=== PATIENT | female | born 1995 | race Caucasian/White ===

== ENCOUNTER → 2016-11-11 18:00 | Observation (INO) ==
[2016-11-11 17:11] LABS: Bilirubin,Urine Negative (Negative); Blood,Urine Negative (Negative); Clarity,Urine Clear (Clear); Color,Urine Dark Yellow (Yellow); Glucose,Urine (UA) Normal (Normal); Ketones,Urine Negative (Negative); Leukocyte Esterase,Urine Small (Negative); Nitrite,Urine Negative (Negative); PH,Urine 6.5 pH Units (5.0-8.0); Protein,Urine 30 mg/dL (Neg-Trace); Specific Gravity,Urine 1.029 (1.010-1.025); Urobilinogen,Urine Normal (Normal)
[2016-11-11 17:13] LABS: Bacteria,Urine None Seen per hpf (None-Few); Hyaline Casts,Urine None Seen per lpf (None-Few); RBC,Urine 0-3 per hpf (0-3); Squamous Epithelial Cell,Urine Many per lpf (None-Few)
--- NOTE | 2016-11-22 12:57 | OB/GYN Progress Note ---
Date of Encounter: 11/11/16 Time of Encounter: 17:00 - Assessment and Plan (1) Decreased movement Status: Acute RNST now noted. Pt now reports active movement. (2) 28 weeks gestation of Status: Acute Subjective - Subjective Principal diagnosis: Dereased movement since this am Interval history: Pt with only one movement since this am, baby is now active. Objective - Exam FHR: category 1 Auscultation: bilateral: normal Abdomen: Present: normal appearance, gravid - Labs Labs: Abnormal lab results Ur Specific Bailey 1.029 (1.010-1.025) H 11/11/16 17:00 Urine Protein 30 mg/dL (Neg-Trace) H 11/11/16 17:00 Ur Leukocyte Esterase Small (Negative) H 11/11/16 17:00 Urine Microscopic WBC 5-15 per hpf (0-3) H 11/11/16 17:00 Ur Squamous Epith Cells Many per lpf (None-Few) H 11/11/16 17:00 Ur Culture Indicated? YES (NO) A 11/11/16 17:00
== END | disposition home or self-care (01) ==
LOC: 1NENULAB
PROVIDERS: ADMIT Obstetrics & Gynecology; ATTEND Obstetrics & Gynecology

== ENCOUNTER 2016-12-11 15:21 | Observation (INO) ==
[2016-12-11 14:47] LABS: Bilirubin,Urine Negative (Negative); Blood,Urine Negative (Negative); Clarity,Urine Cloudy (Clear); Color,Urine Dark Yellow (Yellow); Glucose,Urine (UA) Normal (Normal); Ketones,Urine Negative (Negative); Leukocyte Esterase,Urine Small (Negative); Nitrite,Urine Negative (Negative); PH,Urine 6.5 pH Units (5.0-8.0); Protein,Urine Trace mg/dL (Neg-Trace); Specific Gravity,Urine 1.021 (1.010-1.025); Urobilinogen,Urine Normal (Normal)
[2016-12-11 14:53] LABS: Bacteria,Urine Few per hpf (None-Few); Hyaline Casts,Urine None Seen per lpf (None-Few); RBC,Urine 0-3 per hpf (0-3); Squamous Epithelial Cell,Urine Many per lpf (None-Few); WBC,Urine 15-30 per hpf (0-3)
--- NOTE | 2016-12-11 17:10 | OB/GYN Progress Note ---
Date of Encounter: 12/11/16 Time of Encounter: 17:03 - Assessment and Plan (1) 32 weeks gestation of Current Visit: Yes Status: Acute (2) Back pain affecting in third trimester Current Visit: Yes Status: Acute Lower back TTP. No CVAT. UA with small leukocytes and will be sent for culture. SVE closed and thick. Rare UC on toco. NST reactive. Suspect musculoskeletal pain in lower back. Comfort measures discussed. Discharge home. Follow-up with primary OB on as scheduled. Subjective - Subjective Interval history: 21 year-old presenting at 32 weeks gestation with c/o back pain and ben bustillos contractions. She reports the back pain started on and then she noticed some [employer] bustillos contractions on Sunday. She reports the pain is much better today than it was. She also reports vaginal discharge that has alternated between clear and yellow throughout this . No new or different discharge today. Good FM. No other complaints today. Antepartum ROS: movement normal, contractions, no loss of fluid, no vaginal bleeding Objective - Vital Signs Vital Signs: Intake and Output 12/11/16 12/11/16 12/11/16 07:59 15:59 23:59 Other: Weight 70.8 kg Patient Weight 12/11/16 23:59 Weight 70.8 kg - Exam FHR: category 1 FHR comments: NST reactive Auscultation: bilateral: normal Abdomen: Present: soft, gravid. Absent: tenderness Uterus: Absent: tenderness Cervical dilation: closed Cervix effacement: thick - Labs Labs: Abnormal lab results Urine Clarity Cloudy (Clear) A 12/11/16 14:30 Ur Leukocyte Esterase Small (Negative) H 12/11/16 14:30 Urine Microscopic WBC 15-30 per hpf (0-3) H 12/11/16 14:30 Ur Squamous Epith Cells Many per lpf (None-Few) H 12/11/16 14:30 Ur Culture Indicated? YES (NO) A 12/11/16 14:30
== END 2016-12-11 17:17 | disposition home or self-care (01) ==
LOC: 1NENULAB
PROVIDERS: ADMIT Obstetrics & Gynecology; ATTEND Obstetrics & Gynecology